=== PATIENT | male | born 1960 | race Caucasian/White ===

== ENCOUNTER → 2019-09-19 | Outpatient (CLI) | payer OTHER ==
[~2019-09-19] MED LIST: OMNICEF 300MG300 MG PO; PROAIR HFA0.09 MG/AC IH
[2019-09-19 15:15] LABS: CALCIUM 9.5 mg/dL (8.4-10.2); CREATININE, serum 1.27 (0.66-1.25); POTASSIUM 4.7 mmol/L (3.4-5.0)
== END ==
LOC: COL.LAB 14:32
PROVIDERS: Internal Medicine
DX: N17.9 Acute kidney failure, unspecified (principal)

== ENCOUNTER 2019-09-28 13:06 | Day surgery (SDC) | payer OTHER ==
[~2019-09-28] VITALS: Ht 177.8 cm; Wt 70.9 kg
[2019-09-28] VITALS (10 sets, daily range): BP systolic 113–147; BP diastolic 57–88; PULSE 61–81; TEMP 97.5–97.8
--- NOTE | 2019-09-28 18:00 | NUR ---
PATIENT ADMITED INTO ROOM 343 POST OP TURP WITH CBI INFUSING AT MOD RATE. URINE IS PUNCH COLORED IN MILLER TUBING. IV FLUIDS INFUSING INTO LEFT HAND IV. NO C/O PAIN. VSS. HEAD TO TOE WNL. AT BEDSIDE.
--- NOTE | 2019-09-28 20:00 | NUR ---
Patient received general diet tray, ate 100%. Denies pain or nausea. CBI infusing at moderate rate, urine pink. IVF infusing to left hand without redness or swelling. Spouse at bedside.
--- NOTE | 2019-09-29 01:00 | NUR ---
Patient awake, asking for something for sleep. Melatonin given at this time.
[2019-09-29 04:00] VITALS: BP 111/56; PULSE 73; TEMP 98.2
--- NOTE | 2019-09-29 05:15 | NUR ---
CAPPED IVF AT THIS TIME, PATIENT DRINKING ORAL FLUIDS WELL. CBI CONTINUES AT MODERATE RATE, URINE PINK TINGED.
[2019-09-29 07:30] VITALS: BP 135/71; PULSE 78; TEMP 98.7
--- NOTE | 2019-09-29 08:00 | NUR ---
PATIENT IS A&O. VSS. PATIENT REPORTS MILD PAIN IN TIP OF PENIS. MILLER TO DD WITH CBI INFUSING AT MOD RATE. URINE IS PUNCH COLORED WITH NO CLOTS NOTED. PATIENT EAT/DRINK/VOIDING SUFFICENT AMOUNTS. NO C/O N/V. IV TO INT. BREAKFAST TRAY AT BEDSIDE. AM MEDS GIVEN. HEAD TO TOE ASSESSMENT WNL.
--- NOTE | 2019-09-29 09:21 | NUR ---
RICHARD met with the patient to discuss discharge plan. The patient lives in [place] with his life partner, Sandra Abarca (ph#[phone]). He reports independence with ADLs and does not have any DME. The patient's PCP is Dr. Rae Scherer and he receives his medications at [facility]. He reports no difficulties obtaining his meds. The patient does not have advanced directives completed, but he was interested in obtaining a form for DPOA-HC. RICHARD provided. The patient states that his son, Charly Ford (ph#[phone]), is his next of kin. The patient plans to return home with his life partner upon discharge. No additional needs at this time.
--- NOTE | 2019-09-29 11:00 | NUR ---
URINE IS LIGHT PEACH COLOR IN MILLER WITH NO CLOTS NOTED. CBI COMPLETE. LEAVING CBI CLAMPED, WILL MONITOR OUTPUT.
--- NOTE | 2019-09-29 11:03 | NUR ---
First visit from the strategic buyer. No needs right now.
[2019-09-29 11:27] VITALS: BP 119/58; PULSE 72; TEMP 98.5
--- NOTE | 2019-09-29 15:00 | NUR ---
PATIENT HAS NOT PRODUCED MUCH URINE SINCE CBI HAS BEEN CLAMPED. NURSING HAS BEEN TRYING TO FORCE PO FLUIDS. PATIENT DOESN'T LIKE WATER. HE HAS DRANK SEVERAL JUICES. STARTED BACK ON IV FLUIDS. WILL MONITOR OUTPUT.
--- NOTE | 2019-09-29 15:20 | NUR ---
PATIENT ASSISTED TO MOVE AROUND AND DRINK FLUIDS. AFTER ACTIVITY, MILLER PUT OUT 850CC OF PINK TINGED URINE WITH A SEVERAL, SMALL TISSUE CLOTS NOTED. IV FLUIDS STILL INFUSING. WILL MONITOR
[2019-09-29 16:43] VITALS: BP 141/74; PULSE 80; TEMP 99.2
[2019-09-29 19:28] VITALS: BP 140/72; PULSE 85; TEMP 97.9
[2019-09-29 23:52] VITALS: BP 137/68; PULSE 75; TEMP 97.9
--- NOTE | 2019-09-30 02:01 | NUR ---
Patient has good output this shift and is taking in PO fluids. Patient urine has been a peach color this shift. No signs of infection this shift. Patient has not required any PRN medication this shift.
[2019-09-30 03:49] VITALS: BP 133/74; PULSE 78; TEMP 97.7
--- NOTE | 2019-09-30 05:52 | NUR ---
PATIENT PRIME AND PULLED. MILLER CATHETER CLAMPED. HAND IRRIGATED IN 250 ML NS. 3O ML REMOVED FROM BALLOON. CATHETER PULLED WITHOUT DIFFICULTY. PERICARE DONE. INITIATED 6 CUP ROUTINE. PATIENT TEACHING DONE. ENCOURAGED PO FLUIDS.
[2019-09-30 08:06] VITALS: BP 121/68; PULSE 83; TEMP 99
--- NOTE | 2019-09-30 10:30 | NUR ---
Patient has voided once so far this am. Encouraged him to drink water. He does not like water and wants to drink juice only. Explained that drinking water will help him with voiding. patient is independent in the room. Denies pain. Urine is dark pink, no clots noted. No other changes at this time. Call light within reach.
[2019-09-30 11:18] VITALS: BP 145/78; PULSE 73; TEMP 97.4
--- NOTE | 2019-09-30 15:00 | NUR ---
Patient is doing well with six bottle. His urine light pink/yellow. No clots noted. Patient is hoping to discharge home. No other changes at this time. Call light within reach.
--- NOTE | 2019-09-30 16:15 | NUR ---
Patient is discharging home. Discharge instructions discussed with patient. No questions verbalized. INT discontinued. Patient already follow up appointment scheduled, reminded him of when it is. Copies of discharge instructions sent with patient. All belongings packed up and sent with patient. Patient walked out with this nurse.
== END 2019-09-30 16:15 | disposition home or self-care (01) ==
LOC: SDCO 13:06 → SURG 13:06 → SDCO 15:00 → SURG 17:55 → SDCO 09-30 16:15
DX: N40.1 Benign prostatic hyperplasia with lower urinary tract symptoms (principal); R33.8 Other retention of urine; R39.12 Poor urinary stream; N13.39 Other hydronephrosis; N21.0 Calculus in bladder; F17.210 Nicotine dependence, cigarettes, uncomplicated; Z79.899 Other long term (current) drug therapy
CPT/HCPCS: OP; C1769; J0690; J2250; J2704; J3480; J7120